=== PATIENT | male | born 1980 | race Caucasian/White ===

== ENCOUNTER 2021-05-14 18:34 | Inpatient (IN) | payer MEDICARE ==
[~2021-05-14] VITALS: Ht 182.9 cm; Wt 108.0 kg
[2021-05-14] MEDS ORDERED: ONDANSETRON HCL INJ 2MG/ML 2ML 2 MG/ML VIAL IV STA (18:47)
[2021-05-14] MEDS ORDERED: SODIUM CHLORIDE 0.9% 1000ML 1,000 ML IV STA (18:47)
[2021-05-14] MEDS ORDERED: MORPHINE SULFATE INJ 4 MG/ML INJ 1ML IV STA (18:47)
[2021-05-14] MEDS ORDERED: ONDANSETRON HCL INJ 2MG/ML 2ML 2 MG/ML VIAL ONE (19:26)
[2021-05-14] MEDS ORDERED: SODIUM CHLORIDE 0.9% 1000ML 1,000 ML ONE (19:27)
[2021-05-14] MEDS ORDERED: MORPHINE SULFATE INJ 4 MG/ML INJ 1ML ONE (19:27)
[2021-05-14] MEDS ORDERED: SODIUM CHLORIDE 0.9% 50ML 50 ML ONE ×2 (21:12→22:58)
[2021-05-14] MEDS ORDERED: IOPAMIDOL 370 MG/ML 200 ML INFUS..BTL INJ ONE (21:14)
[2021-05-14] MEDS ORDERED: PIPERACILLIN/TAZOBACTAM 3.375 GM in SODIUM CHLORIDE 0.9% 50ML 50 ML IV SCH (21:30)
[2021-05-14] MEDS ORDERED: PIPERACILLIN/TAZOBACTAM 3.375 GM VIAL ONE (22:57)
[2021-05-14] MEDS: PIPERACILLIN/TAZOBACTAM 3.375 GM in SODIUM CHLORIDE 0.9% 50ML 50 ML IV SCH (23:00)
[2021-05-15] VITALS (7 sets, daily range): BP systolic 109–124; BP diastolic 67–96
[2021-05-15] MEDS: DEXTROSE 5%/0.9% SOD CHL 1,000 ML IV SCH ×3 (00:23→18:15)
[2021-05-15] MEDS: METRONIDAZOLE 500MG/NS 100ML 100 ML IV SCH ×4 (00:23→18:10)
[2021-05-15] MEDS: MORPHINE SULFATE INJ 2 MG/ML SYR IV PRN ×6 (00:24→22:15)
[2021-05-15] MEDS: Pantoprazole IV 40 MG in SODIUM CHLORIDE 0.9% 50ML 50 ML IV SCH ×5 (00:24→20:15)
[2021-05-15] MEDS: ONDANSETRON HCL INJ 2MG/ML 2ML 2 MG/ML VIAL IV PRN ×4 (00:24→22:15)
[2021-05-15] MEDS ORDERED: SODIUM CHLORIDE 0.9% 50ML 50 ML ONE (00:31)
[2021-05-15] MEDS: PIPERACILLIN/TAZOBACTAM 3.375 GM in SODIUM CHLORIDE 0.9% 50ML 50 ML IV SCH ×3 (05:15→22:00)
[2021-05-15] MEDS ORDERED: COGENTIN2 MG/2 ML PO (06:04)
[2021-05-15] MEDS ORDERED: ALBUTEROL0.63 MG/3 NEB (06:04)
[2021-05-15] MEDS ORDERED: PREVACID15 M1 (06:04)
[2021-05-15] MEDS ORDERED: LISINOPRIL10 MG PO (06:04)
[2021-05-15] MEDS ORDERED: prolixin (06:04)
[2021-05-15] MEDS ORDERED: PROTONIX20 MG PO (06:04)
[2021-05-15] MEDS ORDERED: CYCLOBENZAPRINE5 MG PO (06:04)
[2021-05-15 06:32] LABS: BASOPHILS # (AUTO) 0.1 (0.0-0.1); BASOPHILS % 0.8 % (0.0-1.0); EOSINOPHILS # (AUTO) 0.8 (0.0-0.4); EOSINOPHILS % 6.7 % (0.0-6.0); HEMATOCRIT 43.4 % (38.2-49.6); HEMOGLOBIN 14.1 g/dL (14.0-18.0); LYMPHOCYTES # (AUTO) 2.1 (1.0-3.2); MEAN CORPUSCULAR HEMOGLOBIN 32.4 pg (28-32); MEAN CORPUSCULAR HGB CONC 32.5 g/dL (31-35); MEAN CORPUSCULAR VOLUME 99.8 fL (81-99); MONOCYTES % 9.2 % (4.4-11.3); NEUTROPHILS # (AUTO) 7.2 (2.1-6.9); NEUTROPHILS % 63.9 % (38.7-80.0); PLATELET COUNT 291 x10e3/uL (140-360); RED BLOOD COUNT 4.35 x10e6/uL (4.3-5.7); RED CELL DISTRIBUTION WIDTH 14.6 % (11.7-14.4)
[2021-05-15 06:45] LABS: INR 0.98; PROTHROMBIN TIME 13.6 seconds (11.9-14.5)
[2021-05-15 06:46] LABS: PARTIAL THROMBOPLASTIN TIME 29.3 seconds (23.8-35.5)
[2021-05-15 06:57] LABS: ALBUMIN 3.1 g/dL (3.5-5.0); ALBUMIN/GLOBULIN RATIO 0.9 (0.8-2.0); ANION GAP 12.3 mmol/L (8-16); CALCIUM 9.1 mg/dL (8.4-10.2); CREATININE, SERUM 0.89 mg/dL (0.72-1.25); POTASSIUM 4.3 mmol/L (3.5-5.1)
[2021-05-15] MEDS ORDERED: FAMOTIDINE 20 MG/2 ML VIAL IV SCH (09:00)
[2021-05-15] MEDS ORDERED: PEPCID20 MG PO (10:58)
[2021-05-15] MEDS ORDERED: FLUPHENAZINE H2.5 MG PO (10:58)
[2021-05-16] VITALS: BP 137/91
[2021-05-16] MEDS: Pantoprazole IV 40 MG in SODIUM CHLORIDE 0.9% 50ML 50 ML IV SCH ×2 (01:15→05:20)
[2021-05-16 04:00] VITALS: BP 135/91
[2021-05-16] MEDS: DEXTROSE 5%/0.9% SOD CHL 1,000 ML IV SCH (04:15)
[2021-05-16] MEDS: PIPERACILLIN/TAZOBACTAM 3.375 GM in SODIUM CHLORIDE 0.9% 50ML 50 ML IV SCH ×2 (05:20→14:58)
[2021-05-16] MEDS: METRONIDAZOLE 500MG/NS 100ML 100 ML IV SCH ×3 (06:22→13:48)
[2021-05-16 07:32] VITALS: BP 135/84
[2021-05-16 07:45] VITALS: BP 135/84
[2021-05-16] MEDS ORDERED: ENOXAPARIN SOD INJ 40 MG/0.4 ML SYR SC SCH (09:45)
[2021-05-16 11:16] VITALS: BP 130/84
[2021-05-16] MEDS ORDERED: PROPOFOL IV EMULSION 10 MG/ML 20 ML VIAL ONE (12:26)
[2021-05-16] MEDS ORDERED: SODIUM CHLORIDE 0.9% 50ML 50 ML ONE (13:41)
[2021-05-16 15:56] VITALS: BP 142/80
== END 2021-05-16 16:45 | disposition home or self-care (01) | DRG 439 ==
LOC: FSED 18:43 → ERHOLD 21:31 → MED/SURG2 23:49 → OBSVTOIN 05-15 11:52
PROVIDERS: ADMIT Internal Medicine; ATTEND Internal Medicine
PROC: 0DB78ZX Excision of Stomach, Pylorus, Via Natural or Artificial Opening Endoscopic, Diagnostic (ICD-10-PCS; principal; 2021-05-16 14:30)
DX: K85.20 Alcohol induced acute pancreatitis without necrosis or infection (principal); K22.10 Ulcer of esophagus without bleeding; F10.288 Alcohol dependence with other alcohol-induced disorder; K29.70 Gastritis, unspecified, without bleeding; I10 Essential (primary) hypertension; F31.9 Bipolar disorder, unspecified; Z20.822 Contact with and (suspected) exposure to COVID-19; K44.9 Diaphragmatic hernia without obstruction or gangrene; L40.9 Psoriasis, unspecified; F17.200 Nicotine dependence, unspecified, uncomplicated
CPT/HCPCS: 36415; 43239; 74177; 80048; 80053; 80076; 81003; 82948; 83690; 85025; 85610; 85730; 86301; 88305; 88312; 96367; 96374; 96375; 96376; 99284; G0378; J2270; J2405; J2543; J7030; J7042; Q9967; U0002